=== PATIENT | female | born 1990 | race Caucasian/White ===

== ENCOUNTER 2018-08-05 15:47 | Emergency (ER) | payer OTHER ==
[~2018-08-05] VITALS: Ht 165.1 cm; Wt 59.0 kg
[2018-08-05 16:00] VITALS: BP_SYST 101
[2018-08-05 16:48] LABS: BASOPHILS % (AUTO) 0.1 % (0.0-2.0); EOSINOPHILS % (AUTO) 0.1 % (0.0-4.0); HEMATOCRIT 32.6 % (36-48); HEMOGLOBIN 11.3 g/dL (12.0-16.0); LYMPHOCYTES # (AUTO) 0.9 K/uL (1.0-5.5); LYMPHOCYTES % (AUTO) 8.4 % (20.5-51.5); MEAN CORPUSCULAR HEMOGLOBIN 31 pg (27-31); MEAN CORPUSCULAR HGB CONC 35 % (32-36); MEAN CORPUSCULAR VOLUME 88 fL (79.0-98.0); MONOCYTES # (AUTO) 0.4 K/uL (0.0-1.0); NEUTROPHILS # (AUTO) 9.1 K/uL (1.8-7.7); NEUTROPHILS % (AUTO) 87.4 % (40.0-70.0); PLATELET COUNT (AUTO) 178 K/uL (130-430); WHITE BLOOD COUNT (AUTO) 10.4 K/uL (4.8-10.8)
[2018-08-05 16:56] LABS: CALCIUM 8.5 mg/dL (8.4-11.0); CREATININE 0.57 mg/dL (0.55-1.30)
[2018-08-05 17:26] LABS: ALBUMIN 3.4 g/dL (3.4-4.8); TOTAL BILIRUBIN 0.3 mg/dL (0.0-1.0)
[2018-08-05 17:50] VITALS: BP_SYST 100
== END 2018-08-05 17:50 | disposition home or self-care (01) ==
LOC: SED 15:47
DX: O9A.211 Injury, poisoning and certain other consequences of external causes complicating pregnancy, first trimester (principal); S01.312A Laceration without foreign body of left ear, initial encounter; R55 Syncope and collapse; Z3A.09 9 weeks gestation of pregnancy; W19.XXXA Unspecified fall, initial encounter; Y93.89 Activity, other specified; Y92.89 Other specified places as the place of occurrence of the external cause; Y99.8 Other external cause status
CPT/HCPCS: 36415; 76801; 80053; 84702-TC; 85025; 86900; 86901; 99284

== ENCOUNTER 2018-10-11 15:18 | Outpatient (CLI) | payer OTHER ==
[2018-10-11 16:10] LABS: BASOPHILS % (AUTO) 0.1 % (0.0-2.0); EOSINOPHILS % (AUTO) 0.2 % (0.0-4.0); HEMOGLOBIN 10.6 g/dL (12.0-16.0); LYMPHOCYTES % (AUTO) 19.4 % (20.5-51.5); MEAN CORPUSCULAR HEMOGLOBIN 31 pg (27-31); MEAN CORPUSCULAR HGB CONC 34 % (32-36); MEAN CORPUSCULAR VOLUME 92 fL (79.0-98.0); MONOCYTES % (AUTO) 8.3 % (1.7-9.3); NEUTROPHILS # (AUTO) 4.6 K/uL (1.8-7.7); PLATELET COUNT (AUTO) 173 K/uL (130-430); RED BLOOD CELL COUNT(AUTO) 3.38 MIL/uL (4.2-6.2); RED CELL DISTRIBUTION WIDTH 13.6 % (9.0-15.0); WHITE BLOOD COUNT (AUTO) 6.4 K/uL (4.8-10.8)
[2018-10-11 16:11] LABS: LYMPHOCYTES # (AUTO) 1.2 K/uL (1.0-5.5); MONOCYTES # (AUTO) 0.5 K/uL (0.0-1.0)
[2018-10-12 09:28] LABS: HEPATITIS A AB, IgM Negative (Negative); HEPATITIS B CORE AB, IgM Negative (Negative); HEPATITIS B SURFACE AG Negative (Negative)
[2018-10-12 12:06] LABS: RUBELLA AB, IgG 4.84 index (Immune >0.99)
== END 2018-10-12 07:59 | disposition home or self-care (01) ==
LOC: SLB 15:18
PROVIDERS: ATTEND Specialist
DX: Z34.92 Encounter for supervision of normal pregnancy, unspecified, second trimester (principal); Z3A.19 19 weeks gestation of pregnancy
CPT/HCPCS: 36415; 85025; 86592; 86705; 86709; 86762; 86886; 86900; 86901; 87340

== ENCOUNTER 2019-01-02 07:59 | Outpatient (CLI) | payer OTHER ==
[2019-01-02 08:20] LABS: HEMATOCRIT 32.9 % (36-48); LYMPHOCYTES # (AUTO) 1.4 K/uL (1.0-5.5); MONOCYTES # (AUTO) 0.6 K/uL (0.0-1.0); MONOCYTES % (AUTO) 8.6 % (1.7-9.3); NEUTROPHILS # (AUTO) 5.4 K/uL (1.8-7.7); WHITE BLOOD COUNT (AUTO) 7.5 K/uL (4.8-10.8)
[2019-01-02 08:30] LABS: BASOPHILS % (AUTO) 0.2 % (0.0-2.0); EOSINOPHILS % (AUTO) 0.5 % (0.0-4.0); LYMPHOCYTES % (AUTO) 18.5 % (20.5-51.5); MEAN CORPUSCULAR HEMOGLOBIN 30 pg (27-31); MEAN CORPUSCULAR HGB CONC 34 % (32-36); MEAN CORPUSCULAR VOLUME 90 fL (79.0-98.0); NEUTROPHILS % (AUTO) 72.2 % (40.0-70.0); PLATELET COUNT (AUTO) 167 K/uL (130-430); RED BLOOD CELL COUNT(AUTO) 3.67 MIL/uL (4.2-6.2); RED CELL DISTRIBUTION WIDTH 14.1 % (9.0-15.0)
== END 2019-01-02 21:18 | disposition home or self-care (01) ==
LOC: SLB 07:59
PROVIDERS: ATTEND Specialist
DX: O99.810 Abnormal glucose complicating pregnancy (principal); Z3A.00 Weeks of gestation of pregnancy not specified
CPT/HCPCS: 36415; 82947-TC; 85025; 86592

== ENCOUNTER 2019-03-03 05:03 | Inpatient (IN) | payer OTHER ==
[~2019-03-03] VITALS: Ht 165.1 cm; Wt 71.7 kg
[2019-03-03] MEDS ORDERED: LR 1,000 ML IV SCH (05:12)
[2019-03-03] MEDS ORDERED: OXYTOCIN/0.9 % SODIUM CHLORIDE 1,000 ML IV SCH (05:12)
[2019-03-03] MEDS ORDERED: LR 500 ML IV ONE ×2 (05:12→08:19)
[2019-03-03] MEDS ORDERED: NALBUPHINE HCL 10 MG/ML AMP IM PRN (05:15)
[2019-03-03] MEDS ORDERED: NALBUPHINE HCL 10 MG/ML AMP IVP PRN (05:15)
[2019-03-03] MEDS ORDERED: TERBUTALINE SULFATE 1 MG/ML VIAL SUBCUT ONE (05:15)
[2019-03-03 05:30] VITALS: BP_SYST 106
[2019-03-03 06:29] LABS: BASOPHILS % (AUTO) 0.2 % (0.0-2.0); HEMATOCRIT 34.6 % (36-48); HEMOGLOBIN 11.5 g/dL (12.0-16.0); LYMPHOCYTES # (AUTO) 1.2 K/uL (1.0-5.5); LYMPHOCYTES % (AUTO) 14.3 % (20.5-51.5); MEAN CORPUSCULAR HEMOGLOBIN 29 pg (27-31); MEAN CORPUSCULAR HGB CONC 33 % (32-36); MEAN CORPUSCULAR VOLUME 88 fL (79.0-98.0); MONOCYTES # (AUTO) 0.4 K/uL (0.0-1.0); MONOCYTES % (AUTO) 5.3 % (1.7-9.3); NEUTROPHILS # (AUTO) 6.8 K/uL (1.8-7.7); NEUTROPHILS % (AUTO) 80.2 % (40.0-70.0); PLATELET COUNT (AUTO) 111 K/uL (130-430); RED BLOOD CELL COUNT(AUTO) 3.94 MIL/uL (4.2-6.2); RED CELL DISTRIBUTION WIDTH 15.9 % (9.0-15.0); WHITE BLOOD COUNT (AUTO) 8.5 K/uL (4.8-10.8)
[2019-03-03] MEDS ORDERED: fentaNYL CITRATE/PF 100 MCG/2 ML AMP ONE ×2 (06:44→09:42)
[2019-03-03] MEDS ORDERED: ROPIVACAINE HCL/PF 0.2% 100 ML ONE ×2 (06:44→13:49)
[2019-03-03] MEDS ORDERED: CLINDAMYCIN 900 mg/50mL D5W 50 ML IV SCH (08:00)
[2019-03-03] MEDS ORDERED: FENT2mCg/mL-ROPIVA0.2%/NS EPID 200 ML EP SCH (08:30)
[2019-03-03] MEDS ORDERED: OXYTOCIN/0.9 % SODIUM CHLORIDE 1,000 ML IV ONE (15:32)
[2019-03-03] MEDS ORDERED: LANOLIN 7 GM OINT. TP PRN (15:45)
[2019-03-03] MEDS ORDERED: RHO(D) IMMUNE GLOBULIN/MALTOSE 1500 UNITS/1.3 ML (WINHRO) IM PRN (15:45)
[2019-03-03] MEDS ORDERED: DERMOPLAST SPRAY TP PRN (15:45)
[2019-03-03] MEDS ORDERED: WITCH HAZEL LEAF 1 MED.PAD MED.PAD TP PRN (15:45)
[2019-03-03] MEDS ORDERED: DIPH-TET-PERTUS Vaccine 0.5 ML VIAL (ADACEL) I.M. PRN (15:45)
[2019-03-03] MEDS ORDERED: ANUSOL 1 EA SUPP.RECT (PREPARATION H) RC PRN (15:45)
[2019-03-03] MEDS ORDERED: OXYCODONE/ACETAMINOPHEN 5-325 TABLET PO PRN (15:45)
[2019-03-03] MEDS ORDERED: SENNOSIDES/DOCUSATE SODIUM 1 TAB TABLET(SENOKOT-S) PO PRN (15:45)
[2019-03-03] MEDS ORDERED: HYDROcodone/ACETAMIN 5-325 MG TAB (NORCO/ VICODIN) PO PRN (15:45)
[2019-03-03] MEDS ORDERED: MEASLES,MUMPS&RUBELLA VACC/PF 12500 UNIT/0.5 ML VIAL SUBQ PRN (15:45)
[2019-03-03] MEDS: IBUPROFEN 600 MG TABLET PO SCH ×2 (16:15→23:59)
[2019-03-03] MEDS: OXYCODONE/ACETAMINOPHEN 5-325 TABLET PO PRN (18:52)
[2019-03-04] MEDS: OXYCODONE/ACETAMINOPHEN 5-325 TABLET PO PRN ×2 (00:39→20:25)
[2019-03-04] MEDS: IBUPROFEN 600 MG TABLET PO SCH ×4 (06:33→23:32)
[2019-03-04 06:38] LABS: BASOPHILS % (AUTO) 0.2 % (0.0-2.0); EOSINOPHILS % (AUTO) 0.2 % (0.0-4.0); HEMATOCRIT 27.6 % (36-48); HEMOGLOBIN 9.4 g/dL (12.0-16.0); LYMPHOCYTES # (AUTO) 1.6 K/uL (1.0-5.5); LYMPHOCYTES % (AUTO) 15.1 % (20.5-51.5); MEAN CORPUSCULAR HEMOGLOBIN 30 pg (27-31); MEAN CORPUSCULAR HGB CONC 34 % (32-36); MEAN CORPUSCULAR VOLUME 87 fL (79.0-98.0); MONOCYTES # (AUTO) 0.7 K/uL (0.0-1.0); MONOCYTES % (AUTO) 7.1 % (1.7-9.3); NEUTROPHILS % (AUTO) 77.4 % (40.0-70.0); PLATELET COUNT (AUTO) 106 K/uL (130-430); RED BLOOD CELL COUNT(AUTO) 3.16 MIL/uL (4.2-6.2); RED CELL DISTRIBUTION WIDTH 15.7 % (9.0-15.0); WHITE BLOOD COUNT (AUTO) 10.4 K/uL (4.8-10.8)
[2019-03-04] MEDS: DOCUSATE SODIUM 100 MG CAPSULE PO PRN ×2 (20:25)
[2019-03-05] MEDS: IBUPROFEN 600 MG TABLET PO SCH ×2 (05:40→12:42)
[2019-03-05] MEDS: DOCUSATE SODIUM 100 MG CAPSULE PO PRN ×2 (05:40→12:42)
[2019-03-05] MEDS: OXYCODONE/ACETAMINOPHEN 5-325 TABLET PO PRN (05:45)
== END 2019-03-05 14:00 | disposition home or self-care (01) | DRG 807 ==
LOC: SPU 05:03
PROVIDERS: ADMIT Specialist; ATTEND Specialist
PROC: 10E0XZZ Delivery of Products of Conception, External Approach (ICD-10-PCS; principal; 2019-03-03)
PROC: 0KQM0ZZ Repair Perineum Muscle, Open Approach (ICD-10-PCS; 2019-03-03)
PROC: 3E0R3BZ Introduction of Anesthetic Agent into Spinal Canal, Percutaneous Approach (ICD-10-PCS; 2019-03-03)
PROC: 00HU33Z Insertion of Infusion Device into Spinal Canal, Percutaneous Approach (ICD-10-PCS; 2019-03-03)
DX: O69.81X0 Labor and delivery complicated by cord around neck, without compression, not applicable or unspecified (principal); Z37.0 Single live birth; Z3A.39 39 weeks gestation of pregnancy; O70.0 First degree perineal laceration during delivery
CPT/HCPCS: 36415; 85025; 86886; 86900; 86901; 90715; J2590; J2795; J3010; J7120

== ENCOUNTER 2019-12-01 07:05 | Outpatient (CLI) | payer OTHER, SELFPAY ==
--- NOTE | 2019-12-04 11:39 | NUR ---
Patient was notified of her COVID-19 "Negative" Laboratory Test Result and educated on preventive measures to follow ([place] [employer]).
== END 2019-12-01 21:01 | disposition home or self-care (01) ==
LOC: SLB 07:05
PROVIDERS: ATTEND Internal Medicine
DX: Z11.59 Encounter for screening for other viral diseases (principal)
CPT/HCPCS: U0002

== ENCOUNTER 2020-01-19 11:28 | Emergency (ER) | payer OTHER, SELFPAY ==
[~2020-01-19] VITALS: Ht 165.1 cm; Wt 59.0 kg
[2020-01-19 11:28] VITALS: BP_SYST 104
--- NOTE | 2020-01-19 12:30 | NUR ---
Patient to ER bed 3 to gown for evaluation. Side rails up.
--- NOTE | 2020-01-19 12:35 | NUR ---
Pt came to ER for sore throat, pt states her son had strep recently and is anxious about it. 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 Pt states pain 8/, VSS, awaiting MD.
--- NOTE | 2020-01-19 12:45 | NUR ---
ER at bedside examining patient.
[2020-01-19 14:25] VITALS: BP_SYST 104
--- NOTE | 2020-01-19 14:26 | NUR ---
Patient given written and verbal discharge instructions and verbalizes understanding. ER MD discussed with patient the results and treatment provided. Patient in stable condition.Patient educated on pain management and to follow up with PMD. Pain Scale 0. Opportunity for questions provided and answered. Medication side effect fact sheet provided.
--- NOTE | 2020-01-25 12:51 | NUR ---
Patient was notified by IC of her "Not Detected" COVID-19 results and instructed to follow preventive measures ([place] [employer] [facility]), patient verbalizes understanding.
== END 2020-01-19 14:26 | disposition home or self-care (01) ==
LOC: SED 11:28
DX: J02.8 Acute pharyngitis due to other specified organisms (principal); B97.89 Other viral agents as the cause of diseases classified elsewhere; Z20.828 Contact with and (suspected) exposure to other viral communicable diseases
CPT/HCPCS: 86403; 87081; 99283; C9803; U0003

== ENCOUNTER 2020-05-31 15:30 | Outpatient (CLI) | payer OTHER, SELFPAY | END 2020-06-01 17:22 | disposition home or self-care (01) | LOC: SLB 15:30 | PROVIDERS: ATTEND Internal Medicine | DX: Z20.828 Contact with and (suspected) exposure to other viral communicable diseases (principal) | CPT/HCPCS: C9803; U0003 ==

== ENCOUNTER 2020-06-20 09:53 | Outpatient (CLI) | payer OTHER, SELFPAY | END 2020-06-20 20:51 | disposition home or self-care (01) | LOC: SLB 09:53 | PROVIDERS: ATTEND Internal Medicine | DX: Z20.828 Contact with and (suspected) exposure to other viral communicable diseases (principal) | CPT/HCPCS: C9803; U0003 ==

== ENCOUNTER 2023-12-10 08:07 | Outpatient (CLI) | payer OTHER | END 2023-12-10 18:00 | disposition home or self-care (01) | LOC: SMA 08:07 | PROVIDERS: ATTEND Internal Medicine | DX: N60.02 Solitary cyst of left breast (principal); N60.01 Solitary cyst of right breast; N64.4 Mastodynia; N63.0 Unspecified lump in unspecified breast; R92.30 Dense breasts, unspecified | CPT/HCPCS: 76642; 77066 ==